=== PATIENT | female | born 1995 | race Caucasian/White ===

== ENCOUNTER 2022-05-09 19:27 | Inpatient (IN) | payer BC ==
[~2022-05-09 19:27] MED LIST: Bupivacaine/Epinephrine 0.25% 30 ML VIAL ONE
[2022-05-09 19:57] VITALS: BMI 30.9
[2022-05-09 20:08] LABS: Fetal Membranes Rupture RUPTURE DETECTED (No Rupture)
[2022-05-09] MEDS ORDERED: Lidocaine 1% (PF) 30 ML VIAL SC PRN (20:19)
[2022-05-09] MEDS ORDERED: Diphenoxylate HCl/Atropine Tablet PO PRN ×2 (20:19)
[2022-05-09] MEDS ORDERED: Promethazine HCl 25 MG/ML VIAL IM PRN ×2 (20:19→22:01)
[2022-05-09] MEDS ORDERED: Misoprostol 200 MCG TAB PR PRN (20:19)
[2022-05-09] MEDS ORDERED: Butorphanol Tartrate 1 MG/ML VIAL SLOW IVP PRN (20:19)
[2022-05-09] MEDS ORDERED: HYDROcodone/Acetaminophen 5/325 mg Tablet PO PRN ×2 (20:19)
[2022-05-09] MEDS ORDERED: Ibuprofen 800 MG TAB PO PRN (20:19)
[2022-05-09] MEDS ORDERED: Carboprost 250 MCG/ML AMP IM PRN (20:19)
[2022-05-09] MEDS ORDERED: Methylergonovine 0.2 MG/ML VIAL IM PRN (20:19)
[2022-05-09] MEDS ORDERED: Ondansetron PF 4 MG/2 ML Vial IVP PRN ×2 (20:19→22:01)
[2022-05-09] MEDS ORDERED: hydrALAZINE 20 MG/ML VIAL SLOW IVP PRN (20:19)
[2022-05-09] MEDS ORDERED: Penicillin G Potassium 5 MILL.UNITS VIAL ONE (20:43)
[2022-05-09] MEDS ORDERED: Penicillin G Potassium 5 MILL.UNITS in Sodium Chloride 0.9% 100 ML IVPB SCH (20:45)
[2022-05-09 20:47] LABS: Mean Corpuscular HGB CONC 34.4 g/dL (32.0-36.0); Mean Corpuscular Hemoglobin 29.7 pg (27.0-33.0); Mean Corpuscular Volume 86.4 fl (81.6-98.3); Platelet Count 184 10x3/uL (150-450); RBC Distribution Width 12.9 % (11.5-14.5); Red Blood Cell (RBC) Count 4.04 10x6/uL (3.90-5.03); White Blood Cell (WBC) Count 10.1 10x3/uL (3.5-10.5)
[2022-05-09] MEDS ORDERED: NS w/ Oxytocin 30 units 500 ML IV SCH ×2 (21:00)
[2022-05-09] MEDS ORDERED: Lactated Ringer's 1,000 ML IV SCH (21:00)
[2022-05-09] MEDS ORDERED: Fentanyl 2 mcg/Bup 0.1% Cadd 100 ML ONE (21:20)
[2022-05-09 21:24] LABS: Hep B Surf Ag Non-Reactive S/CO (NonReactive); Syphilis Antibody Nonreactive (Nonreactive); Syphilis Antibody Index 0.05 S/CO (<1.00 Non-Reactive)
[2022-05-09 21:28] LABS: HBSAg Index 0.17 S/CO (0-0.99)
[2022-05-09] MEDS ORDERED: Acetaminophen 325 MG TAB PO PRN (22:01)
[2022-05-09] MEDS ORDERED: Moisturizing Cream (Eucerin) 113 GM JAR TOP PRN (22:01)
[2022-05-09] MEDS ORDERED: Lactated Ringer's 500 ML IV PRN (22:01)
[2022-05-09] MEDS ORDERED: Naloxone HCl 0.4 mg/ml Vial IVP PRN ×2 (22:01)
[2022-05-09] MEDS ORDERED: ePHEDrine Sulfate 50 MG/10 ML VIAL SLOW IVP PRN (22:01)
[2022-05-09] MEDS ORDERED: diphenhydrAMINE 50 MG/ML VIAL IVP PRN (22:01)
[2022-05-09] MEDS ORDERED: Communication Order-Pharmacy FS SCH (22:15)
[2022-05-09] MEDS ORDERED: Fentanyl 2 mcg/Bupivacaine 0.1% Cassette 100 ML EPIDURAL SCH (22:15)
[2022-05-10] MEDS: Penicillin G 2.5 MILL.units 2.5 MILL.UNITS in Premix Bag 1 BAG IVPB SCH (00:26)
[2022-05-10] MEDS ORDERED: Fentanyl 2 mcg/Bup 0.1% Cadd 100 ML ONE (03:22)
[2022-05-10] MEDS ORDERED: NS w/ Oxytocin 30 units 500 ML IV SCH (08:31)
[2022-05-10] MEDS ORDERED: Ondansetron PF 4 MG/2 ML Vial IVP PRN (08:31)
[2022-05-10] MEDS ORDERED: Bisacodyl 10 MG SUPP PR PRN (08:31)
[2022-05-10] MEDS ORDERED: Misoprostol 200 MCG TAB VAG PRN (08:31)
[2022-05-10] MEDS ORDERED: Milk Of Magnesia 30 ML UDCUP PO PRN (08:31)
[2022-05-10] MEDS ORDERED: Benzocaine-Menthol 82.5 ML CAN TOP PRN (08:31)
[2022-05-10] MEDS ORDERED: Methylergonovine 0.2 MG/ML VIAL IM PRN (08:31)
[2022-05-10] MEDS ORDERED: hydrALAZINE 20 MG/ML VIAL SLOW IVP PRN (08:31)
[2022-05-10] MEDS ORDERED: Boostrix 0.5 ML (Tdap) VIAL IM ONE (08:31)
[2022-05-10] MEDS ORDERED: Ferrous Sulfate 325 MG TAB PO SCH (09:00)
[2022-05-10] MEDS ORDERED: HYDROcodone/Acetaminophen 5/325 mg Tablet PO PRN ×2 (09:29→09:30)
[2022-05-10] MEDS: Docusate 100 MG CAP PO SCH ×2 (09:40→20:17)
[2022-05-10] MEDS: Ibuprofen 800 MG TAB PO SCH ×2 (09:40→17:41)
[2022-05-10] MEDS: Ferrous Sulfate 325 MG TAB PO SCH (17:42)
[2022-05-11] MEDS: Ibuprofen 800 MG TAB PO SCH ×2 (00:45→09:06)
[2022-05-11] MEDS: Penicillin G 2.5 MILL.units 2.5 MILL.UNITS in Premix Bag 1 BAG IVPB SCH (05:55)
[2022-05-11 07:20] VITALS: BP 109/65; TEMP 97.9
[2022-05-11] MEDS: Ferrous Sulfate 325 MG TAB PO SCH (09:05)
[2022-05-11] MEDS: Docusate 100 MG CAP PO SCH (09:06)
== END 2022-05-11 14:23 | disposition home or self-care (01) | DRG 807 ==
LOC: CSHLD/OP 19:27 → CSHLD 22:19 → CSHPP 05-10 08:20
PROVIDERS: ADMIT Obstetrics & Gynecology; ATTEND Obstetrics & Gynecology
PROC: 10D07Z6 Extraction of Products of Conception, Vacuum, Via Natural or Artificial Opening (ICD-10-PCS; principal; 2022-05-10)
DX: O42.02 Full-term premature rupture of membranes, onset of labor within 24 hours of rupture (principal); Z37.0 Single live birth; Z20.822 Contact with and (suspected) exposure to COVID-19; Z3A.38 38 weeks gestation of pregnancy; J45.909 Unspecified asthma, uncomplicated; O99.52 Diseases of the respiratory system complicating childbirth; Z79.899 Other long term (current) drug therapy; O99.824 Streptococcus B carrier state complicating childbirth; O76 Abnormality in fetal heart rate and rhythm complicating labor and delivery
CPT/HCPCS: 36415; 84112; 85027; 86780; 86850; 86900; 86901; 87340; J2540; U0003; U0005